=== PATIENT | female | born 1960 | race Caucasian/White ===

== ENCOUNTER 2024-07-05 16:17 | Emergency (ER) | payer MEDICARE, BC, SELFPAY ==
--- NOTE | ~2024-07-05 | XR_ITS ---
EXAMINATION: XR FOREARM, LEFT CLINICAL INFORMATION: Injury, pain COMPARISON: None available. TECHNIQUE: AP and lateral views of the left forearm were obtained. FINDINGS: Soft tissue laceration and swelling is seen in the lateral aspect of the distal forearm. No retained radiopaque foreign body. The bones are normal. No fracture. Imaged portions of the elbow and wrist are unremarkable. XR/XR forearm LT 2V IMPRESSION: Soft tissue laceration and swelling. No acute osseous process. Electronically signed by: Richard Garner MD 07/05/2024 08:02 PM EDT RP
[2024-07-05 16:25] VITALS: BP 128/90; BP 130/57; PULSE 63; PULSE 84; RESP 20; TEMP 36.6; O2SAT 96; O2SAT 98; BMI 21.0
[2024-07-05] MEDS: Lidocaine HCl 1%/Epi 1:100,000 10 ML VIAL INFILTRATI (19:13)
--- NOTE | 2024-07-05 20:08 | ED_ITS ---
HPI - Wound/Laceration General Chief Complaint: Wound/Laceration Stated Complaint: LAC FROM CHAINSAW, BLEEDING CONTROLLED, - THINNERS Time Seen by Provider: 07/05/24 18:46 Source: patient, RN notes reviewed and old records reviewed Mode of arrival: EMS Limitations: no limitations History of Present Illness ED Provider: Sue HPI narrative: 64-year-old female presents for evaluation of a laceration to her left forearm. Patient was using a small chain saw. She reports that she slipped and drop the change the cut the left forearm She reports her last tetanus was less than 1 year ago She is not on any anticoagulation Related Data Allergies Allergy/AdvReac Type Severity Reaction Status Date / Time naproxen [From Naprosyn] Allergy Unknown TACHYCARDIA Unverified 07/05/24 16:27 Naprosyn Allergy Unknown Unknown Uncoded 07/05/24 16:27 Review of Systems Constitutional: Constitutional: Denies body ache(s), Denies chills and Denies fever(s) Eyes: Eyes: Denies blurry vision ENT: Denies vertigo Cardiovascular: Cardiovascular: Denies chest pain Musculoskeletal: Musculoskeletal: Denies arthralgias, Denies joint swelling and Denies limited range of motion Integumentary/Breasts: Skin/Breast: Reports wounds Neurologic: Denies vertigo PMFSH Social History Social History Advance Directives: No Advance Directives Information Provided: No Do you have a plan to hurt others: No Plan Physical Exam Vital Signs: Vital Signs: Last Vital Signs Temp 98.7 F 07/05/24 20:33 Pulse 63 07/05/24 20:33 Resp 16 07/05/24 20:33 BP 115/44 L 07/05/24 20:33 Pulse Ox 98 07/05/24 20:33 O2 Del Method Room Air 07/05/24 20:33 BMI result Body Mass Index 21.0 Const: General: healthy appearing, comfortable, no acute distress, alert and awake Nutritional Appearance: well nourished Orientation/consciousness: patient oriented x3 HEENT: Head: Yes normocephalic and Yes atraumatic Eyes: Eyelids: Yes eyelids normal Conjunctivae: conjunctivae normal Sclerae: sclerae normal Corneas: corneas normal Pupils: Equal, round and reactive pupils present EOM: EOMs intact bilaterally Resp: Effort & Inspection: normal respiratory effort, able to speak in complete sentences and not labored Skin: General skin exam: elasticity normal Neuro: General: patient oriented x3 Cranial nerves: Yes Equal, round and reactive pupils present and Yes Bilaterally intact EOM present Cognition (Neuro): normal cognition Extrem: Other: Irregular laceration to the dorsal surface of the left forearm over the distal radius. No active bleeding. Patient has full range of motion with flexion- extension of the left wrist. He has full range of motion with flexion-extension of all fingers at the MCP, PIP and D IP joints as well as opposition of the thumb. Medications Administered Discontinued Medications Generic Name Dose Route Start Last Admin Trade Name Freq PRN Reason Stop Dose Admin Lidocaine/Epinephrine 10 ml 07/05/24 19:00 07/05/24 19:13 Lidocaine Hcl 1%/Epi 1:100,000 10 Ml Vial INFILTRATI 07/05/24 19:01 10 ml ONCE ONE Administration Medical Decision Making Medical Decision Making [facility] Narrative: Patient has a complicated laceration of the left forearm. The wound is irregular. X-ray was performed which shows no evidence of underlying osseous injury. There is no obvious evidence of vasculature injury or tendon injury. The patient has full range of motion with flexion and extension of the fingers with the left hand as well as the wrist. There was no numbness. See procedure note for wound repair Differential Diagnosis Differential Diagnoses: The differential diagnosis associated with the presentation includes Laceration Fracture Open fracture Tendon laceration Independent Interpretation I performed an independent interpretation of an: Plain X-Ray Interpretation: No obvious fracture of the left forearm Radiology Impression Discussion of test interpretation with radiology: I have reviewed the radiologist's reading. Radiologist Impression: FINDINGS: Soft tissue laceration and swelling is seen in the lateral aspect of the distal forearm. No retained radiopaque foreign body. The bones are normal. No fracture. Imaged portions of the elbow and wrist are unremarkable. XR/XR forearm LT 2V IMPRESSION: Soft tissue laceration and swelling. No acute osseous process. Electronically signed by: Richard Garner MD 07/05/2024 08:02 PM EDT Procedures Laceration Laceration 1: Site: upper extremity Side (If applicable): left Size (cm): 3 Description: irregular Depth: simple, single layer Local Anesthetic: lidocaine 1% and with epi Amount of anesthesia used (mL): 4 Pre-repair: wound explored, irrigated extensively and deep structures intact (And it was visualized appear intact.) Skin layer closed with: nylon Size (cm): 5-0 Number of sutures: 10 Technique: simple, interrupted Discharge Plan Discharge Clinical Impression: Laceration Patient Disposition: Home, Self-Care Instructions: Laceration (ED) Additional Instructions: You had 10 sutures placed today. Keep the area clean and dry These sutures can be removed in 10-14 days Follow-up with your primary doctor, return for new or worsening symptoms Interventions: ED Discharge Assessment Last Done: 07/05/24 20:33 Discharge Date/Time: 07/05/24 20:35 Print Language: Gambian
[2024-07-05 20:11] VITALS: BP 115/44; PULSE 63; RESP 16; TEMP 37.1; O2SAT 98
[2024-07-05 20:33] VITALS: BP 115/44; PULSE 63; RESP 16; TEMP 37.1; O2SAT 98
== END 2024-07-05 20:35 | disposition home or self-care (01) ==
PROVIDERS: Emergency Provider Emergency Medicine; PCP Internal Medicine
DX: S51.812A Laceration without foreign body of left forearm, initial encounter (principal); W29.3XXA Contact with powered garden and outdoor hand tools and machinery, initial encounter; Y93.H2 Activity, gardening and landscaping; Y92.017 Garden or yard in single-family (private) house as the place of occurrence of the external cause; Y99.9 Unspecified external cause status
CPT/HCPCS: 12002; 73090; 99284; J2004

== ENCOUNTER 2024-07-17 11:11 | Outpatient (AMB) | payer MEDICARE, BC, SELFPAY ==
--- NOTE | 2024-07-17 11:20 | AM.OFFWIN_ITS ---
Intake Vital Signs 07/17/24 11:21 Weight 115 lb BP 106/68 Blood Pressure Location Rt brachial Position Sitting Pulse 84 Pulse Source Pulse Oximeter Pulse Oximetry (%) 96 Oxygen Delivery Method Room Air Intake Visit Reasons: [employer] Stitch removal Intake Note: Patient here to have stitched removed which were placed on the . Patient Tobacco Use Status: Current everyday Tobacco user Allergies naproxen [From Naprosyn] Allergy (Unknown, Unverified 07/17/24 11:23) TACHYCARDIA Naprosyn Allergy (Unknown, Uncoded 07/17/24 11:23) Unknown Do you need a note to return to daycare/school/sports/work: No HPI HPI Comments History of Present Illness Details 64 y/o female patient who presents to [facility] in clinic for suture removal. [facility] Social History Patient Tobacco Use Status: Current everyday Tobacco user Review of Systems Const All systems reviewed & are unremarkable except as noted in HPI and below Physical Exam Vital Signs: Last Vital Signs Pulse 84 07/17/24 11:21 BP 106/68 07/17/24 11:21 Pulse Ox 96 07/17/24 11:21 Oxygen Delivery Method Room Air 07/17/24 11:21 Const General: cooperative and no acute distress Nutritional Appearance: well nourished Orientation/consciousness: patient oriented x3 Skin Wounds: wounds noted (Well healing scar tissue left forearm. ) Neuro General: patient oriented x3, gait normal and moves all extremities Extrem Other: Left forearm stitches removed (10 in total). Wound healing well, dry and clean. Assessment & Plan Assessment & Plan (1) Visit for suture removal: Code(s): Z48.02 - Encounter for removal of sutures Plan: Sutures removed 10. Patient tolerated procedure well Applied topical Bacitracin and steristrips. Coding Level of Care Code Est Pt Level 3 (19951) Diagnoses Visit for suture removal Z48.02 Time Spent (min) 20
[2024-07-17 11:21] VITALS: BP 106/68; PULSE 84; O2SAT 96
== END 2024-07-17 11:40 | disposition home or self-care (01) ==
PROVIDERS: PCP Internal Medicine; Visit Provider Nurse Practitioner Family
DX: Z48.02 Encounter for removal of sutures (principal)

== ENCOUNTER → 2024-07-17 11:11 | Outpatient (BNVA) | payer MEDICARE, BC, SELFPAY | PROVIDERS: PCP Internal Medicine; Visit Provider Nurse Practitioner Family | DX: Z48.02 Encounter for removal of sutures (principal) | CPT/HCPCS: 99212 ==